=== PATIENT | male | born 1990 | race Caucasian/White ===

== ENCOUNTER 2016-11-28 21:48 | Emergency (ER) | payer SELFPAY ==
[~2016-11-28] VITALS: Ht 190.5 cm; Wt 79.4 kg
[2016-11-28] MEDS ORDERED: IV NORMAL SALINE 1000ML BAG 1,000 ML IV ONE (22:15)
[2016-11-28 22:16] LABS: BASO # 0.1 x10^3/uL (0.0-0.2); BASO % 1 % (0-3); EOS % 3 % (0-3); HEMATOCRIT 42.8 % (39.0-53.0); HEMOGLOBIN 15.1 g/dL (13.0-17.5); LYMPH # 2.8 x10^3/uL (1.0-4.8); LYMPH % 34 % (24-48); MEAN CORPUSCULAR HEMOGLOBIN 32 pg (25-35); MEAN CORPUSCULAR HGB CONC 35 g/dL (31-37); MEAN CORPUSCULAR VOLUME 91 fL (79-100); MONO % 5 % (0-9); NEUT % 58 % (31-73); PLATELET COUNT 234 x10^3/uL (140-400); RED BLOOD COUNT 4.71 x10^6/uL (4.30-5.70); RED CELL DISTRIBUTION WIDTH 12.3 % (11.5-14.5); WHITE BLOOD COUNT 8.3 x10^3/uL (4.0-11.0)
--- NOTE | 2016-11-28 22:53 | RAD ---
Examination: CT head without contrast HISTORY: History of seizure COMPARISON: None available. Exposure: One or more of the following individualized dose reduction techniques were utilized for this examination: 1. Automated exposure control 2. Adjustment of the mA and/or kV according to patient size 3. Use of iterative reconstruction technique FINDINGS: There is no evidence of midline shift. There is no acute intracranial bleed or extra axial fluid collection identified. The estevez-white matter differentiation is maintained. The visualized lateral ventricles, third ventricle, fourth ventricles are appropriate for age. The basal cisterns aren't effaced. The mastoid air cells are clear. Moderate mucosal thickening identified in the left sphenoid sinus. IMPRESSION: 1. No acute intracranial findings. 2. Left sphenoid sinus disease. Electronically signed by: Jhony Pena MD (11/28/2016 10:49 PM)
[2016-11-28 22:55] LABS: CALCIUM 8.9 mg/dL (8.5-10.1); GFR 90.3; POTASSIUM 3.9 mmol/L (3.5-5.1)
[2016-11-28 22:57] LABS: BARBITURATES NEG (NEG); BENZODIAZEPINES POS (NEG); CANNABINOIDS NEG (NEG); COCAINE NEG (NEG); METHADONE NEG (NEG); OPIATES NEG (NEG); PHENCYCLIDINE NEG (NEG)
--- NOTE | 2016-11-28 23:12 | PHYS DOC ---
Past Medical History Past Medical History: No Pertinent History, Other Past Surgical History: No Surgical History Alcohol Use: Occasionally Drug Use: Other Social History Narrative: HX OF COCAINE, METH, AND PCP LAST A YEAR AGO Adult General Chief Complaint Chief Complaint: SEIZURE HPI HPI Patient is a 26 year old male who presents with seizure. The patient states he was at the [employer] & was seen after having a shaking/jerking episode while seated on the ground. Unknown duration of symptoms, no tongue biting or incontinence. He reportedly received 2.5 mg of versed x 2 per EMS on scene. He denies fall. Denies loss of consciousness during this event & states he remembers experiencing the shaking. He denies use of drugs or alcohol today. He states he has had similar episodes approximately every 2 weeks over the past 8 months but has never seen a doctor for this problem. He has no known past medical history. He is from [facility]. Review of Systems Review of Systems Constitutional: Denies fever or chills Eyes: Denies change in visual acuity HENT: Denies nasal congestion or sore throat Respiratory: Denies cough or shortness of breath Cardiovascular: Denies chest pain or edema GI: Denies abdominal pain, nausea, vomiting, or diarrhea Musculoskeletal: Denies back pain or joint pain Integument: Denies rash or skin lesions Neurologic: Reports seizure. Denies headache, focal weakness or sensory changes Current Medications Current Medications Current Medications Medications (Trade) Dose Ordered Sig/Maida Start Time Stop Time Status Last Admin Dose Admin Sodium Chloride 1,000 ml @ 1,000 mls/hr 1X ONCE 11/28/16 22:15 11/28/16 23:14 DC 11/28/16 22:18 1,000 MLS/HR Allergies Allergies Allergies Coded Allergies Type Severity Reaction Last Updated Verified No Known Drug Allergies 11/28/16 No Physical Exam Physical Exam Constitutional: Well developed, well nourished, no acute distress, non-toxic appearance. HENT: Normocephalic, atraumatic, bilateral external ears normal, oropharynx moist, nose normal. no bite gonzalez to tongue. Eyes: PERRLA, EOMI, conjunctiva normal, no discharge. Neck: supple, no stridor. no nuchal rigidity, no midline c-spine tenderness. Cardiovascular: RRR, no murmurs, no edema. Lungs & Thorax: LCTAB, no wheezing, no respiratory distress. Abdomen: soft, nontender, nondistended. Skin: Warm, dry, no erythema, no rash. Back: No spinal tenderness. Extremities: No deformity or tenderness, no edema. Neurologic: Alert and oriented X 3, CN2-12 grossly intact, symmetric strength/ sensation to UE & LE, no focal deficits noted. Psychologic: Affect normal, judgement normal, mood normal. Current Patient Data Vital Signs Vital Signs Date Time Temp Pulse Resp B/P (MAP) Pulse Ox O2 Delivery O2 Flow Rate FiO2 11/28/16 23:19 55 16 128/67 (87) 99 Room Air 11/28/16 21:50 98.1 98.1 Lab Values Laboratory Tests Test 11/28/16 21:54 11/28/16 21:55 11/28/16 22:34 White Blood Count 8.3 x10^3/uL (4.0-11.0) Red Blood Count 4.71 x10^6/uL (4.30-5.70) Hemoglobin 15.1 g/dL (13.0-17.5) Hematocrit 42.8 % (39.0-53.0) Mean Corpuscular Volume 91 fL (79-100) Mean Corpuscular Hemoglobin 32 pg (25-35) Mean Corpuscular Hemoglobin Concent 35 g/dL (31-37) Red Cell Distribution Width 12.3 % (11.5-14.5) Platelet Count 234 x10^3/uL (140-400) Neutrophils (%) (Auto) 58 % (31-73) Lymphocytes (%) (Auto) 34 % (24-48) Monocytes (%) (Auto) 5 % (0-9) Eosinophils (%) (Auto) 3 % (0-3) Basophils (%) (Auto) 1 % (0-3) Neutrophils # (Auto) 4.8 x10^3uL (1.8-7.7) Lymphocytes # (Auto) 2.8 x10^3/uL (1.0-4.8) Monocytes # (Auto) 0.4 x10^3/uL (0.0-1.1) Eosinophils # (Auto) 0.2 x10^3/uL (0.0-0.7) Basophils # (Auto) 0.1 x10^3/uL (0.0-0.2) Sodium Level 144 mmol/L (136-145) Potassium Level 3.9 mmol/L (3.5-5.1) Chloride Level 107 mmol/L (98-107) Carbon Dioxide Level 26 mmol/L (21-32) Anion Gap 11 (6-14) Blood Urea Nitrogen 15 mg/dL (8-26) Creatinine 1.0 mg/dL (0.7-1.3) Estimated GFR (Cockcroft-Gault) 90.3 Glucose Level 114 mg/dL (70-99) H Calcium Level 8.9 mg/dL (8.5-10.1) Ethyl Alcohol Level < 10 mg/dL (0-10) Lactic Acid Level 1.2 mmol/L (0.4-2.0) Urine Opiates Screen Neg (NEG) Urine Methadone Screen Neg (NEG) Urine Barbiturates Neg (NEG) Urine Phencyclidine Screen Neg (NEG) Urine Amphetamine/Methamphetamine Neg (NEG) Urine Benzodiazepines Screen Pos (NEG) Urine Cocaine Screen Neg (NEG) Urine Cannabinoids Screen Neg (NEG) Urine Ethyl Alcohol Neg (NEG) Laboratory Tests 11/28/16 21:54 Laboratory Tests 11/28/16 21:54 EKG EKG Interpreted by me: Normal sinus rhythm rate 85, no acute ST or T wave changes, normal intervals, no ectopy. [] Radiology/Procedures Radiology/Procedures PROCEDURE: CT HEAD WO CONTRAST Examination: CT head without contrast HISTORY: History of seizure COMPARISON: None available. Exposure: One or more of the following individualized dose reduction techniques were utilized for this examination: 1. Automated exposure control 2. Adjustment of the mA and/or kV according to patient size 3. Use of iterative reconstruction technique FINDINGS: There is no evidence of midline shift. There is no acute intracranial bleed or extra axial fluid collection identified. The estevez-white matter differentiation is maintained. The visualized lateral ventricles, third ventricle, fourth ventricles are appropriate for age. The basal cisterns aren't effaced. The mastoid air cells are clear. Moderate mucosal thickening identified in the left sphenoid sinus. IMPRESSION: 1. No acute intracranial findings. 2. Left sphenoid sinus disease. Electronically signed by: Jhony Pena MD (11/28/2016 10:49 PM) DICTATED and SIGNED BY: JHONY PENA MD DATE: 11/28/16 2788[] Course & Med Decision Making Course & Med Decision Making Pertinent Labs and Imaging studies reviewed. (See chart for details) The patient presents with seizure. Symptoms atypical for epileptic seizure as he has full recollection of the events occurring during this shaking episode & not postictal on scene or at time of exam. Not new onset although no previous evaluation. neurologically intact. Obtained labs & CT head, no acute abnormality identified. Normal WBC & lactic acid. I discussed results with patient. Certainly requires further neurologic evaluation but may be completed as outpatient as not in status epilepticus & suspecting nonepileptic seizure. He is comfortable with discharge home. May not drive a car until cleared by his physician, recommend no swimming at the pool. Follow up with PCP in 2-3 days & with neurology as soon as possible - in [place]. Come back for recurrent/prolonged seizure, injury sustained during seizure, any otherwise worsening condition. Discharged home in stable condition. [] Dragon Disclaimer Dragon Disclaimer This electronic medical record was generated, in whole or in part, using a voice recognition dictation system. Departure Departure Impression: Primary Impression: Seizure Disposition: 01 HOME, SELF-CARE Condition: STABLE Referrals: NO PCP (PCP) Patient Instructions: Seizure, Adult, [id number] Additional Instructions: You were seen in the emergency department today for seizure. The event does not sound like epilepsy but it's very important to follow-up for further testing. When you get home, please make an appointment with a primary care doctor and a neurologist. Do not drive a vehicle until you're cleared by a doctor. Be sure to drink plenty of fluids to stay well hydrated. Return to the emergency department for another similar episode, any injuries occurring during such an episode, trouble moving arms or legs, any otherwise worsening condition. SONY JAUREGUI MD Nov 28, 2016 23:12
[2016-11-28 23:19] VITALS: BP 128/67
--- NOTE | 2016-11-29 07:51 | EKG ---
[facility] [address] [place] [id number] Test Date: 2016-11-28 Test Time: 22:15:47 Pat Name: ANTOINE ALVAREZ Department: Room: Gender: M Insurance Salesperson: : 1990 Requested By: SONY JAUREGUI Order Number: [id number] Reading MD: Brandt Perales Measurements Intervals [place] Rate: 85 P: 52 AL: 168 QRS: 48 QRSD: 88 T: 43 QT: 326 QTc: 388 Interpretive Statements SINUS RHYTHM RI6.01 Unconfirmed report No previous ECG available for comparison Electronically Signed On 12-02-2016 9:50:04 CDT by Brandt Perales
== END 2016-11-28 23:30 | disposition home or self-care (01) ==
LOC: ER 21:48
DX: R56.9 Unspecified convulsions (principal)
CPT/HCPCS: 36415; 70450; 80048; 80305; 80320; 83605; 85027; 93005; 96360; 99285; J7030; G0480; G0481